=== PATIENT | male | born 1990 | race Caucasian/White ===

== ENCOUNTER 2017-11-12 12:23 | Emergency (ER) | payer OTHER ==
[~2017-11-12] VITALS: Ht 190.5 cm; Wt 99.8 kg
[2017-11-12 12:29] VITALS: BP 172/118
== END 2017-11-12 13:06 | disposition home or self-care (01) ==
LOC: M.ERS 12:23
DX: S51.811A Laceration without foreign body of right forearm, initial encounter (principal); W22.8XXA Striking against or struck by other objects, initial encounter; Y93.89 Activity, other specified; Y92.89 Other specified places as the place of occurrence of the external cause; Y99.8 Other external cause status